=== PATIENT | male | born 1975 | race Caucasian/White ===

== ENCOUNTER 2016-08-03 08:54 | Day surgery (SDC) | payer OTHER ==
[~2016-08-03 08:54] MED LIST: ACETAMINOPHEN 1,000 MG/100 ML 100 ML IV ONE; CELECOXIB 100 MG CAPSULE PO ONE; ceFAZolin 2 GM/50 ML 50 ML IV ONE
[2016-08-03] MEDS ORDERED: LACTATED RINGERS 1,000 ML IV ONE ×2 (09:14→11:59)
[2016-08-03] MEDS ORDERED: SCOPOLAMINE PATCH TOP ONE (10:05)
[2016-08-03] MEDS ORDERED: DEXAMETHASONE 4 MG/ML VIAL IVP ONE (11:00)
[2016-08-03] MEDS ORDERED: MIDAZOLAM 2 MG/2 ML VIAL IVP ONE (11:00)
[2016-08-03] MEDS ORDERED: PROPOFOL 200 MG/20 ML VIAL IVP ONE (11:00)
[2016-08-03] MEDS ORDERED: fentaNYL 100 MCG/2 ML VIAL IVP ONE (11:00)
[2016-08-03] MEDS ORDERED: LIDOCAINE-MPF 2% 5 ML VIAL IM ONE (11:00)
[2016-08-03] MEDS ORDERED: ONDANSETRON 4 MG/2 ML VIAL IVP ONE (11:00)
[2016-08-03] MEDS: fentaNYL 100 MCG/2 ML VIAL ONE ×3 (12:19→12:36)
== END 2016-08-03 08:55 | disposition home or self-care (01) ==
PROC: 0SBC4ZZ Excision of Right Knee Joint, Percutaneous Endoscopic Approach (ICD-10-PCS; principal; 2016-08-03 10:30)
DX: S83.241A Other tear of medial meniscus, current injury, right knee, initial encounter (principal); M25.861 Other specified joint disorders, right knee; G89.29 Other chronic pain; X50.9XXA Other and unspecified overexertion or strenuous movements or postures, initial encounter; M94.261 Chondromalacia, right knee
CPT/HCPCS: 29875; 29881; 29999; A9270; J0131; J0690; J3490; J7120

== ENCOUNTER 2016-08-21 11:22 | Outpatient (CLI) | payer OTHER | END 2016-08-21 11:23 | disposition home or self-care (01) | DX: G47.30 Sleep apnea, unspecified (principal); G47.10 Hypersomnia, unspecified; R06.83 Snoring ==

== ENCOUNTER 2016-09-15 21:45 | Outpatient (CLI) | payer OTHER | END 2016-09-15 21:46 | disposition home or self-care (01) | LOC: SC 21:45 | PROVIDERS: ATTEND Internal Medicine Pulmonary Disease | DX: G47.30 Sleep apnea, unspecified (principal) | CPT/HCPCS: 95810 ==

== ENCOUNTER 2016-10-11 09:18 | Outpatient (CLI) | payer OTHER | END 2016-10-11 09:19 | disposition home or self-care (01) | LOC: SC 09:18 | PROVIDERS: ATTEND Nurse Practitioner Family | DX: R06.83 Snoring (principal); R53.83 Other fatigue | CPT/HCPCS: 99212; 99214 ==

== ENCOUNTER 2019-02-20 08:16 | Day surgery (SDC) | payer OTHER ==
[2019-02-20] MEDS ORDERED: CEFAZOLIN SODIUM IN 0.9 % NACL 2 GM/100 ML BAG IV ONE (08:35)
[2019-02-20] MEDS ORDERED: LACTATED RINGERS 1,000 ML IV ONE ×2 (08:36→11:14)
--- NOTE | 2019-02-20 09:42 | ANESTHESIA ---
Pre-Anesthesia VS, & Labs - Diagnosis Right torn meniscus - Procedure Right knee arthroscopy with meniscal debridement Vital Signs: Temp Pulse Resp BP Pulse Ox 36.3 C L 74 16 120/79 98 02/20/19 08:37 02/20/19 08:37 02/20/19 08:37 02/20/19 08:37 02/20/19 08:37 Height 5 ft 10 in Weight (kg) 85.9 kg - NPO >8 hours - Lab Results Lab results reviewed: No Home Medications and Allergies Sumatriptan Succinate [Imitrex] 6 mg SQ DAILY PRN 08/02/16 Allergies/Adverse Reactions: Allergies Allergy/AdvReac Type Severity Reaction Status Date / Time No Known Drug Allergies Allergy Verified 02/20/19 09:12 Anes History & Medical History - Anesthetic History Anesthesia Complications: reports: No previous complications Family history of Anesthesia Complications: Denies Family history of Malignant Hyperthermia: Denies - Medical History Cardiovascular: reports: None Pulmonary: reports: None Gastrointestinal: reports: None Urinary: reports: None Neuro: reports: Headaches Musculoskeletal: reports: Other Endocrine/Autoimmune: reports: None Blood Disorders: reports: None Skin: reports: None Smoking Status: Never smoker Psychosocial: reports: No issues indicated - Surgical History Orthopedic: Arthroscopic surgery Exam General: Alert, Oriented x3, Cooperative Dental: WNL Mouth Opening: Greater than 4 Fingerbreadths Neck Mobility: Normal Mallampati classification: I Thyromental Distance: greater than 6 cm Respiratory: Lungs clear Cardiovascular: Regular rate Mental/Cognitive Status: Alert/Oriented X3 Cognitive Status: Within normal limits Plan Anesthesia Type: General Consent for Procedure(s) Verified and Reviewed: Yes Code Status: Attempt Resuscitation ASA classification: 2-Mild systemic disease Is this case an emergency?: No
[2019-02-20] MEDS ORDERED: EPINEPHrine 1 MG/ML AMP ONE (10:03)
[2019-02-20] MEDS ORDERED: BUPIVACAINE 0.25% PF 30 ML VIAL ONE (10:03)
[2019-02-20] MEDS ORDERED: ONDANSETRON 4 MG/2 ML VIAL IVP ONE (10:08)
[2019-02-20] MEDS ORDERED: PROPOFOL 200 MG/20 ML VIAL IVP ONE (10:08)
[2019-02-20] MEDS ORDERED: DEXAMETHASONE 4 MG/ML VIAL IVP ONE (10:08)
[2019-02-20] MEDS ORDERED: PHENYLEPHRINE 50 MG/5 ML VIAL IV ONE (10:08)
[2019-02-20] MEDS ORDERED: LIDOCAINE-MPF 2% 5 ML VIAL IM ONE (10:08)
[2019-02-20] MEDS ORDERED: fentaNYL 250 MCG/5 ML VIAL IVP ONE (10:08)
[2019-02-20] MEDS ORDERED: MIDAZOLAM 2 MG/2 ML VIAL IVP ONE (10:08)
[2019-02-20] MEDS ORDERED: BUPIVACAINE 0.25% PF 30 ML VIAL SUBQ ONE ×2 (10:33)
[2019-02-20] MEDS ORDERED: oxyCODONE 5 MG TABLET PO PRN (11:15)
[2019-02-20] MEDS ORDERED: ONDANSETRON 4 MG/2 ML VIAL IVP PRN (11:15)
[2019-02-20] MEDS: HYDROmorphone 1 MG/ML CARPUJECT ONE ×2 (11:24→11:33)
--- NOTE | 2019-02-20 11:25 | OPERATIVE REPORT ---
Operative Report - Other Other Information/Narrative: Date of Surgery: 20 February 2019 Pre-Op Diagnosis: Right medial meniscus tear, right medial femoral condyle cartilage lesion, right knee Hays's cyst Procedure: Right knee arthroscopy with medial meniscus debridement, medial femoral condyle chondroplasty, Hays's cyst decompression Postop Diagnosis: Same Primary Surgeon: Osito Franks Secondary Surgeon: Filemon Lee Complications: None Tourniquet Time: 32 minutes EBL: 5 cc Indication For Surgery: 43-year-old male who is 3 years status post a medial meniscus debridement and cyst decompression by Dr. Norris had return of symptoms to include significant mechanical phenomenon over the medial aspect of the knee. Conservative measures did not improve his symptoms. MRI showed partial-thickness cartilage lesions as well as recurrent versus persistent horizontal tear of the medial meniscus with the superior leaflet intact. We discussed nonsurgical and surgical options and specifically discussed that if this pain was from his arthritic changes knee arthroscopy is not likely to improve that significantly. The risks, benefits, and alternatives were discussed. Risks include pain, bleeding, infection, damage to nearby structures and cartilage, lack of symptom relief, need for further surgery, DVT, PE, stroke, and . Written consent was obtained. Examination Under Anesthesia: ROM equal to the contralateral side. Stable dial at 30 & 90 degrees. Stable to varus and valgus stressing at 0 & 30 degrees. Ia Anastacio. Normal Pivot shift. No mechanical sensation Arthroscopic Findings: Multiple small, soft loose bodies were seen and these were removed. Synovium normal. Patella cartilage no focal cartilage lesions, the inferior pole showed some osteophyte formation. Trochlear cartilage normal. Medial femoral condyle cartilage large section of grade 2/3 cartilage change with focal 5 mm x 12 mm grade 3 change. Medial tibial plateau cartilage grade 2 changes throughout with some focal grade 3. Medial meniscus showed a prior meniscectomy, there was a portion of the meniscus that was torn near the root that was unstable, the superior leaflet was largely intact, the inferior leaflet had mostly ossified yet it was debrided to a stable base. ACL was normal. PCL was normal. Lateral femoral condyle cartilage was largely normal, but early osteophyte formation was seen on the lateral edge. Lateral tibial plateau cartilage normal. Lateral meniscus normal. Procedure in Detail: The patient was met in the pre-operative hold area on the day of the procedure. The operative extremity was signed and questions were answered. The patient was brought to the operating room and a general anesthetic was administered. Supine position was used and bony prominences were padded. An examination under anesthesia was performed. Standard prepping and draping was performed. A time out confirmed patient identification, laterality, procedure, allergies, antibiotics, and images. An Esmarch was used to exsanguinate the limb and the tourniquet was elevated to 250 mmHg. A standard diagnostic arthroscopy of the knee was performed through anterolateral and anteromedial portal sites. The anteromedial portal was created under direct visualization after localizing with a spinal needle. The findings can be found above. I then proceeded to use of biter to take the leading edge of the superior leaflet. I then went back to the root and found the majority of it to be intact however there was a loose portion of the meniscus that was then removed with a biter and shaver. I then used the shaver from the medial and then the lateral portal to debride the inferior leaflet, the inferior leaflet largely had been debrided already but showed some ossification. I then made a rent in the posterior capsule at the level of the inferior leaflet and the cyst was decompressed through this. I then used the shaver at the inferior pole of the patella to debride a small amount of synovitis that was over an osteophyte. After he had completed debridement of his much meniscus as possible I then probed it extensively and found no unstable portions. I then used the shaver to take a small area of unstable cartilage from the medial femoral condyle and this left him with a linear area of full-thickness cartilage loss Final images were taken and all arthroscopic fluid and instruments were removed from the knee. The incisions were closed with buried monocryl sutures. Steri strips were applied. 10 cc of 0.25% Marcaine without epinephrine was injected near the portal sites. A sterile dressing and compression stocking was placed. The patient was awakened and transferred to recovery in stable condition.
[2019-02-20] MEDS ORDERED: ACETAMINOPHEN 1,000 MG/100 ML 100 ML IV ONE (11:34)
[2019-02-20] MEDS: fentaNYL 100 MCG/2 ML VIAL ONE ×3 (11:41→11:54)
[2019-02-20] MEDS ORDERED: oxyCODONE 5 MG TABLET ONE (12:31)
[2019-02-20] MEDS ORDERED: ONDANSETRON 4 MG/2 ML VIAL ONE (13:11)
[2019-02-20 13:22] VITALS: BP 113/77
== END 2019-02-20 08:17 | disposition home or self-care (01) ==
LOC: SDS 08:16
PROVIDERS: ATTEND Orthopaedic Surgery
PROC: 0SBC4ZZ Excision of Right Knee Joint, Percutaneous Endoscopic Approach (ICD-10-PCS; principal; 2019-02-20 09:15)
DX: M23.203 Derangement of unspecified medial meniscus due to old tear or injury, right knee (principal); M71.21 Synovial cyst of popliteal space [Baker], right knee; M94.9 Disorder of cartilage, unspecified; M25.761 Osteophyte, right knee
CPT/HCPCS: 29881; A9270; J0131; J0690; J1170; J3010; J7120

== ENCOUNTER 2019-03-20 10:10 | Day surgery (SDC) | payer OTHER ==
[~2019-03-20 10:10] MED LIST changes: -ACETAMINOPHEN 1,000 MG/100 ML 100 ML IV ONE; +CEFAZOLIN SODIUM IN 0.9 % NACL 2 GM/100 ML BAG IV ONE; -CELECOXIB 100 MG CAPSULE PO ONE; -ceFAZolin 2 GM/50 ML 50 ML IV ONE
[2019-03-20] MEDS ORDERED: DEXAMETHASONE 4 MG/ML VIAL IVP ONE (10:11)
[2019-03-20] MEDS ORDERED: GLYCOPYRROLATE 1 MG/5 ML VIAL IVP ONE (10:11)
[2019-03-20] MEDS ORDERED: MIDAZOLAM 2 MG/2 ML VIAL IVP ONE (10:11)
[2019-03-20] MEDS ORDERED: KETOROLAC 30 MG/ML VIAL IVP ONE (10:11)
[2019-03-20] MEDS ORDERED: LIDOCAINE 2% 10 ML MDV SUBQ ONE (10:11)
[2019-03-20] MEDS ORDERED: PROPOFOL 200 MG/20 ML VIAL IVP ONE (10:11)
[2019-03-20] MEDS ORDERED: LACTATED RINGERS 1,000 ML IV ONE ×2 (10:13→12:58)
--- NOTE | 2019-03-20 10:35 | ANESTHESIA ---
Pre-Anesthesia VS, & Labs - Diagnosis Left knee meniscus tear - Procedure left knee arthroscopy, meniscus debridement Vital Signs: Temp Pulse Resp BP Pulse Ox 36.7 C 73 12 134/79 H 99 03/20/19 10:24 03/20/19 10:24 03/20/19 10:24 03/20/19 10:24 03/20/19 10:24 Height 5 ft 10 in Weight (kg) 87 kg - NPO >8 hours Home Medications and Allergies Sumatriptan Succinate [Imitrex] 6 mg SQ DAILY PRN 08/02/16 Allergies/Adverse Reactions: Allergies Allergy/AdvReac Type Severity Reaction Status Date / Time No Known Drug Allergies Allergy Verified 03/12/19 09:16 Anes History & Medical History - Anesthetic History Anesthesia Complications: reports: No previous complications - Medical History Cardiovascular: reports: None Pulmonary: reports: None Gastrointestinal: reports: None Urinary: reports: None Neuro: reports: Migraines Musculoskeletal: reports: None Endocrine/Autoimmune: reports: None Blood Disorders: reports: None Skin: reports: None Smoking Status: Never smoker Psychosocial: reports: No issues indicated - Surgical History Orthopedic: Arthroscopic surgery Exam General: Alert, Oriented x3, Cooperative, No acute distress Dental: WNL Mouth Openin Fingerbreadth Neck Mobility: Normal Mallampati classification: II Thyromental Distance: greater than 6 cm Respiratory: Lungs clear, Normal breath sounds, No respiratory distress, No accessory muscle use Cardiovascular: Regular rate, Normal S1, Normal S2, No murmurs Mental/Cognitive Status: Alert/Oriented X3, Normal for patient Plan Anesthesia Type: General Consent for Procedure(s) Verified and Reviewed: Yes Code Status: Attempt Resuscitation ASA classification: 1-Healthy patient Is this case an emergency?: No
[2019-03-20] MEDS ORDERED: BUPIVACAINE 0.25% PF 30 ML VIAL ONE (10:52)
[2019-03-20] MEDS ORDERED: EPINEPHrine 1 MG/ML AMP ONE ×3 (10:55→10:59)
[2019-03-20] MEDS ORDERED: EPINEPHrine 1 MG/ML AMP IR ONE (11:40)
[2019-03-20] MEDS ORDERED: BUPIVACAINE 0.25% PF 30 ML VIAL SUBQ ONE ×2 (11:52→12:11)
[2019-03-20] MEDS ORDERED: ONDANSETRON 4 MG/2 ML VIAL IVP PRN (12:18)
[2019-03-20] MEDS ORDERED: oxyCODONE 5 MG TABLET PO PRN (12:18)
--- NOTE | 2019-03-20 12:23 | OPERATIVE REPORT ---
Operative Report - Other Other Information/Narrative: Date of Surgery: 20 March 2019 Pre-Op Diagnosis: Left knee medial meniscus tear Procedure: Left knee arthroscopic medial meniscus debridement Postop Diagnosis: Same Primary Surgeon: Osito Franks Secondary Surgeon: None Complications: None Tourniquet Time: 32 minutes EBL: 5 cc Indication For Surgery: 43-year-old male has had medial sided left knee pain for years that has not responded to conservative measures to include physical therapy, activity modifications, medical management. The risks, benefits, and alternatives were discussed. Risks include pain, bleeding, infection, damage to nearby structures and cartilage, lack of symptom relief, need for further surgery, DVT, PE, stroke, and . Written consent was obtained. Examination Under Anesthesia: ROM equal to the contralateral side. Stable dial at 30 & 90 degrees. Stable to varus and valgus stressing at 0 & 30 degrees. Normal Anastacio. Normal Pivot shift. No mechanical sensation Arthroscopic Findings: No loose bodies. Synovium hypertrophic anteriorly this was debrided. Patella cartilage grade 1 changes. Trochlear cartilage grade 1 changes. Medial femoral condyle cartilage normal. Medial tibial plateau cartilage normal. Medial meniscus complex tear with a radial component for at least 1 cm and horizontal component back to the capsule at the junction of the posterior horn and body.. ACL was normal. PCL was normal. Lateral femoral condyle cartilage normal. Lateral tibial plateau cartilage normal. Lateral meniscus normal. Procedure in Detail: The patient was met in the pre-operative hold area on the day of the procedure. The operative extremity was signed and questions were answered. The patient was brought to the operating room and a general anesthetic was administered. Supine position was used and bony prominences were padded. An examination under anesthesia was performed. Standard prepping and draping was performed. A time out confirmed patient identification, laterality, procedure, allergies, antibiotics, and images. An Esmarch was used to exsanguinate the limb and the tourniquet was elevated to 250 mmHg. A standard diagnostic arthroscopy of the knee was performed through anterolateral and anteromedial portal sites. The anteromedial portal was created under direct visualization after localizing with a spinal needle. The findings can be found above. I then proceeded to use of biter and shaver to debride all unstable portions of the meniscus. At the site of the horizontal tear I debrided the inferior leaflet. A significant portion of the meniscus needed to be debrided because of the radial tear, this was nearly back to the capsule. I smoothed all edges with a biter and shaver and took all on healthy portions of the meniscus. Final images were taken and all arthroscopic fluid and instruments were removed from the knee. The incisions were closed with buried monocryl sutures. Steri strips were applied. 10 cc of 0.25% Marcaine without epinephrine was injected near the portal sites. A sterile dressing and compression stocking was placed. The patient was awakened and transferred to recovery in stable condition.
[2019-03-20] MEDS: fentaNYL 100 MCG/2 ML VIAL ONE ×3 (12:34→12:57)
[2019-03-20] MEDS ORDERED: HYDROmorphone 0.5 MG/0.5 ML SYRINGE ONE (12:50)
[2019-03-20 14:16] VITALS: BP 104/63
== END 2019-03-20 10:11 | disposition home or self-care (01) ==
LOC: SDS 10:10
PROVIDERS: ATTEND Orthopaedic Surgery
PROC: 0SBD4ZZ Excision of Left Knee Joint, Percutaneous Endoscopic Approach (ICD-10-PCS; principal; 2019-03-20 12:00)
DX: S83.232A Complex tear of medial meniscus, current injury, left knee, initial encounter (principal)

== ENCOUNTER 2019-03-20 20:23 | Outpatient (CLI) | payer OTHER | END 2019-03-20 20:24 | disposition critical access hospital (66) | LOC: EMS 20:23 | PROVIDERS: ATTEND Surgery | DX: R52 Pain, unspecified (principal); R23.2 Flushing; R45.1 Restlessness and agitation | CPT/HCPCS: A0425; A0429 ==

== ENCOUNTER 2019-03-20 20:40 | Emergency (ER) | payer OTHER ==
[2019-03-20 20:45] VITALS: BP 134/85
--- NOTE | 2019-03-20 21:58 | ED Physician Documentation ---
History of Present Illness - Stated complaint Stated Complaint: BODY ACHES, UNEASY - Chief complaint Chief Complaint: General - History obtained from History obtained from: Patient, Family - History of Present Illness Timing: Today - Additonal information Additional information: This is a 43-year-old man who had his right knee scope for meniscal repair earlier today. He was sent home around 2 PM. They did not do an epidural block they just did some sort of inhaled anesthetic and local. They gave him 2 oxycodone pills prior to discharge. He ate around 4:00 and then about 630 said he started feeling really hot and just very anxious and agitated. He did not break out in a sweat. His said he was up pacing with crutches around the room and he just could not get comfortable. He felt pain everywhere in his body except for his left knee and the pain was working its way up his back through the neck and up over the top of his head. His headache now feels like his typical migraine for which she uses sumatriptan but he was concerned to use it at home not knowing what the source of the agitation was. He checked his temperature was 96.6. He did not have any vomiting. Denies numbness or tingling into the arms or legs. He had no chest pain or shortness of breath. He stopped [facility] the [facility] where they ran a put him on a monitor and saw something unusual so the did a 12-lead EKG but did not see anything on that but still recommended that he come into the emergency department tonight. He has not passed out. This is his third knee surgery so he cannot understand why he is having this reaction this time when the other ones went fine. Review of Systems Constitutional: denies: Fever Eyes: denies: Decreased vision Throat: reports: Sore throat (His mouth feels very dry tonight) Cardiac: reports: Palpitations. denies: Chest pain / pressure Respiratory: denies: Dyspnea GI: denies: Nausea, Vomiting Musculoskeletal: reports: Neck pain, Back pain, Extremity pain Neurologic: reports: Headache. denies: Generalized weakness, Focal weakness, Numbness, Difficulty speaking, Syncope, Confused, Altered mental status Psychiatric: reports: Other (Hulbert agitated) PD PAST MEDICAL HISTORY - Past Medical History Cardiovascular: None Respiratory: None Neuro: Migraines Endocrine/Autoimmune: None GI: None : None HEENT: None Psych: None Musculoskeletal: None Derm: None - Past Surgical History Ortho: Arthroscopic surgery - Present Medications Home Medications: Ambulatory Orders Medication Instructions Recorded Confirmed Sumatriptan Succinate [Imitrex] 6 mg SQ DAILY PRN 08/02/16 03/20/19 - Allergies Allergies/Adverse Reactions: Allergies Allergy/AdvReac Type Severity Reaction Status Date / Time No Known Drug Allergies Allergy Verified 03/20/19 20:45 - Social History Smoking Status: Never smoker PD ED PE NORMAL - Vitals Vital signs reviewed: Yes - General General: Alert and oriented X 3, No acute distress, Well developed/nourished - HEENT HEENT: Atraumatic, PERRL, EOMI, Moist mucous membranes - Cardiac Cardiac: RRR, No murmur, Strong equal pulses - Respiratory Respiratory: No respiratory distress, Clear bilaterally - Abdomen Abdomen: Normal bowel sounds - Back Back: Other (No puncture or Band-Aid on his lower back to suggest spinal anesthesia.) - Derm Derm: Normal color, Warm and dry, No rash - Extremities Extremities: Other (The left knee is wrapped in Kerlix and has a JASON hose on the leg. There is not any significant swelling. There is no staining on the gauze.) - Neuro Neuro: Alert and oriented X 3, retail leader 2-12 intact, No motor deficit, No sensory deficit, Normal speech - Psych Psych: Normal mood, Normal affect Results - Vitals Vitals: Vital Signs - 24 hr 03/20/19 20:43 Temperature 36.7 C Heart Rate 89 Respiratory 16 Rate Blood Pressure 134/85 H O2 Saturation 97 Oxygen O2 Source Room air PD MEDICAL DECISION MAKING - ED course Complexity details: re-evaluated patient, d/w patient, d/w family ED course: Patient does have a sinus arrhythmia. At this point the most likely explanation for his symptoms is some sort of medication reaction. Did not have any chest pain or shortness of breath. I did not see any indication for laboratory studies tonight and we discussed signs and symptoms of infection that they can watch for at home. He was given sumatriptan here and had relief of his headache. Departure - Departure Disposition: 01 Home, Self Care Clinical Impression: Headache Qualifiers: Headache type: unspecified Headache chronicity pattern: unspecified pattern Intractability: not intractable Qualified Code(s): R51 - Headache Condition: Good Follow-Up: Mariano Hurtado MD [Primary Care Provider] - Comments: Home and rest. Follow-up with the surgeon as scheduled. If you develop fever, vomiting, chest pain, you are dizzy or pass out or other problems arise you can return to the emergency department for reevaluation. Discharge Date/Time: 03/20/19 23:44
[2019-03-20] MEDS ORDERED: SUMAtriptan 6 MG/0.5 ML VIAL SUBQ STA (22:20)
== END 2019-03-20 23:44 | disposition home or self-care (01) ==
LOC: EDUNIT# → ED 20:40
DX: R51 Headache (principal); M54.2 Cervicalgia; Z98.890 Other specified postprocedural states
CPT/HCPCS: 93005; 96374; 99284

== ENCOUNTER 2019-05-13 10:10 | Outpatient (CLI) | payer OTHER ==
[~2019-05-13 10:10] MED LIST changes: +BUFFERED LIDOCAINE 10 ML SYRINGE ONE; -CEFAZOLIN SODIUM IN 0.9 % NACL 2 GM/100 ML BAG IV ONE
[2019-05-13] MEDS ORDERED: ROPIVACAINE 0.5% PF 20 ML AMPULE EPI ONE (15:49)
[2019-05-13] MEDS ORDERED: TRIAMCINOLONE 40 MG/ML VIAL IM ONE (15:49)
[2019-05-13] MEDS ORDERED: BUFFERED LIDOCAINE 10 ML SYRINGE IU ONE (15:49)
--- NOTE | 2019-05-13 15:50 | Ultrasound Report ---
Reason: SYNOVITIS TENOSYNOVITIS RT LEG Procedure Date: 05/13/2019 Accession Number: [id number] / [id number] Procedure: US - US Drain/Inj Joint/Bursa W US CPT Code: 69453 Final Report FULL RESULT: EXAM: ULTRASOUND-GUIDED STEROID INJECTION OF BURSA. EXAM DATE: 05/13/2019 10:39 AM. CLINICAL HISTORY: Synovitis, tenosynovitis right leg. COMPARISON: None. TECHNIQUE: Risks, benefits, and alternatives to the procedure were discussed with the patient. All questions answered. Written and verbal consent obtained. Patient was placed in the supine position and the skin overlying the Pes anserinus of the right knee marked with sonographic guidance. The skin was sterilely prepped and draped, and 1% buffered lidocaine was used for local anesthesia. A 22-gauge needle was used to deliver 10 mg triamcinolone and 2 mg 0.5 mL bupivacaine to the joint space. Upon completion, the needle was removed. FINDINGS: Increased fluid and echogenic surrounding tissue in the region of the pes anserinus bursa with foci of echogenic shadowing suggestive of calcifications. The needle was demonstrated within the target bursa. IMPRESSION: Ultrasound-guided bursal steroid injection. RADIA
== END 2019-05-13 10:11 | disposition home or self-care (01) ==
LOC: DI 10:10
PROVIDERS: ATTEND Orthopaedic Surgery
DX: M65.861 Other synovitis and tenosynovitis, right lower leg (principal)
CPT/HCPCS: 20611